=== PATIENT | male | born 1965 | race African-American/Black ===

== ENCOUNTER 2017-12-25 05:58 | Inpatient (IN) ==
[2017-12-25] MEDS ORDERED: Levofloxacin 500 MG/100 ML 500 MG/100 ML BAG IVPB ONE (06:17)
[2017-12-25] MEDS ORDERED: Albuterol 2.5 MG/3 ML NEBULIZER IH ONE (06:17)
[2017-12-25] MEDS ORDERED: Lidocaine -MPF 1% 2 ML VIAL ID ONE (06:17)
[2017-12-25] MEDS ORDERED: Ringers Solution, Lactated 1,000 ML IVC SCH (06:30)
--- NOTE | 2017-12-25 07:00 | Anesthesia Evaluation PreOp ---
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 Hand, Vocal cord sx, ing hernia, discectomy L4-5) Alcohol Use: none Drug use: none Medications and Allergies Methocarbamol [Robaxin] 750 mg PO Q4H 12/25/17 [History] 3 Allergy/AdvReac Type Severity Reaction Status Date / Time codeine Allergy Nausea Verified 12/25/17 06:24 Penicillins [PCN] Allergy See Verified 12/25/17 06:24 Comments pregabalin [From Lyrica] AdvReac See Verified 12/25/17 06:24 Comments - Meds/Allergy Pre-op Review Medications Reviewed: Yes Allergies Reviewed: Yes Beta Blockers on Current Med List: No Anesthesia Results - Labs Laboratory Tests 08/11/16 10/05/17 12/12/17 16:00 08:19 11:24 WBC 8.4 Hgb 14.8 Hct 43.8 Plt Count 232 INR 1.0 Sodium 140 Potassium 3.9 Chloride 107 Carbon Dioxide 27 BUN 8 Creatinine 12/12/17 11:24 WBC Hgb Hct Plt Count INR Sodium Potassium Chloride Carbon Dioxide BUN Creatinine 1.27 Stress Echo No Doppler Name: Husam Krishna Date of Study: 11/07/2017 Impressions: Negative stress ECG and echocardiogram for ischemia. Excellent exercise capacity without chest discomfort. Findings: Study Quality * Technically adequate exam. Rest Echocardiogram * LVEF 60%. * Normal left ventricular structure and function. Stress Echocardiogram * Normal sinus rhythm at rest. * No arrhythmias noted prior to exam beginning. * Stress ECG is negative for ischemia. * Rare PVCs noted during exercise. * The patient demonstrated a normal blood pressure response. * The exercise capacity was excellent. * No chest pain during stress procedure. * Appropriate increase EF with stress without segmental wall motion abnormalities. - Imaging EKG: report reviewed Anesthesia Exam O2 Sat Height 1.75 m Height 1.75 m Height 1.75 m Weight 93.44 kg Weight 93.44 kg Weight 93.44 kg O2 Sat by Pulse Oximetry 96 Vital Signs Temp Pulse Resp BP Pulse Ox 98.4 F 72 18 126/80 96 12/25/17 06:20 12/25/17 06:20 12/25/17 06:20 12/25/17 06:20 12/25/17 06:20 - HEENT Pupil (Motor): Pupils equal, EOMI Mallampati: II Teeth: Normal Oral Opening: Greater than 3 - [employer]ICK[employer] LOC: Oriented [employer] Motor: Normal RUE, Normal LUE, Normal RLE, Normal LLE, Normal Face [employer] Sensory: Normal: RUE, LUE, RLE, LLE, Face - Cardiac Rhythm: Regular Murmur: None JVD: No Carotid Bruit: No - Pulmonary Breath Sounds: bilateral Clear Respiratory Effort: Symmetrical Anesthesia Assess/Plan ASA Score: 2 Modified Reeds Scale for Level of Consciousness: Cooperative, oriented, and tranquil Anesthetic Plan: General Autologous Blood: Yes Monitoring Plan: Standard Monitors Recovery Plan: PACU
[2017-12-25] MEDS ORDERED: Bupivacaine-MPF 0.25% 10 ML VIAL ONE (07:13)
[2017-12-25] MEDS ORDERED: *HR* FentaNYL (PF) 100 MCG/2 ML VIAL ONE ×4 (07:14→10:32)
[2017-12-25] MEDS ORDERED: *HR* Propofol 200 MG/20 ML VIAL IVP ONE ×2 (07:14→09:58)
[2017-12-25] MEDS ORDERED: *HR* Midazolam HCl 2 MG/2 ML VIAL ONE (07:14)
[2017-12-25] MEDS ORDERED: Lidocaine -MPF 4% 5 ML AMPUL ONE (07:16)
--- NOTE | 2017-12-25 07:16 | History & Physical Report ---
Date of Encounter: 12/25/17 Time of Encounter: 07:16 24 Hour HP Update - Instructions Instructions: If the History and Physical is less than 30 days old and was completed prior to A.M. admission and or procedure and has NOT been updated on calendar day of procedure please complete this update prior to performing procedure. - Update Patient reports changes in Medical Condition: No Changes in examination, assessment, or condition: No Changes in Medication: No Preop tests/diagnostics Reviewed: Yes Surgery Remains Indicated: Yes Consent for Planned Operative Procedure(s) Verified: Yes - Pre-Operative Checklist Preoperative Checklist Indicated: Yes Prophylactic Antibiotic Ordered: Yes Home Medications Include Beta Joe: No Is VTE Prophylaxis Indicated?: Yes
[2017-12-25] MEDS ORDERED: Lacri-Lube 3.5 GM TUBE ONE (07:18)
[2017-12-25] MEDS ORDERED: Lidocaine -MPF 2% 2 ML VIAL ONE (07:30)
[2017-12-25] MEDS ORDERED: *HR* Succinylcholine 200 MG/10 ML VIAL IVP ONE (07:30)
[2017-12-25] MEDS ORDERED: *HR* Rocuronium Bromide 50 MG/5 ML VIAL ONE ×2 (07:30→10:15)
[2017-12-25] MEDS ORDERED: Heparin 1,000 UNITS/500 mL 500 ML ONE (07:35)
[2017-12-25] MEDS ORDERED: 0.9 % Sodium Chloride 1,000 ML IVC SCH (08:00)
[2017-12-25] MEDS ORDERED: Dexamethasone 4 MG/ML VIAL ONE (09:58)
[2017-12-25] MEDS ORDERED: Ondansetron 4 MG/2 ML VIAL ONE (09:58)
[2017-12-25] MEDS ORDERED: *HR* Metoprolol 5 MG/5 ML VIAL IVP ONE ×2 (10:22)
[2017-12-25] MEDS ORDERED: Neostigmine Methylsulfate 3 MG/3 ML SYRINGE ONE (11:38)
[2017-12-25] MEDS ORDERED: Acetaminophen IV 1,000 MG/100 ML INFUS..BTL IVPB ONE (11:42)
[2017-12-25] MEDS ORDERED: Ondansetron 4 MG/2 ML VIAL IVP ONE (11:42)
[2017-12-25] MEDS ORDERED: MORPHINE SUL Oral CONC 10 MG/0.5 ML ORAL.SYG SL PRN (11:42)
[2017-12-25] MEDS ORDERED: *HR* OxyCODONE Immed Rel 5 MG TABLET PO PRN (11:42)
[2017-12-25] MEDS ORDERED: *HR* HYDROmorphone 2 MG TABLET PO PRN (11:42)
--- NOTE | 2017-12-25 12:21 | Operative Note ---
Date of procedure: 12/25/17 Pre-op diagnosis: Prostate cancer Post-op diagnosis: other Procedure: Robotic-assisted radical prostatectomy Implants: 20-Rwandan Bernardo catheter. 19-Rwandan Nam drain Complications: none Anesthesia: GETA Surgeon: Trent Samuels Was there an education administrative assistant present: Yes Garage Worker: John Ritchie Estimated blood loss (cc): 300 Specimen: Left seminal vesicle and vas deferens. Prostate. Condition: stable Disposition: PACU Procedure in Detail: INDICATIONS FOR PROCEDURE: Mr. Krishna is a 52 year-old male with history of elevated PSA. He was found on prostate needle biopsy to have Maria C 3+3 prostate cancer along the right side. He is now presenting for robotic assisted prostatectomy. He was informed of the risks of the procedure including but not limited to bleeding, infection, injury to other structures, need for further procedures, lymphocele, urinary incontinence, urine leak, erectile dysfunction, bladder neck contracture, rectal injury, and the risk of anesthesia. He is willing to proceed. PROCEDURE: After informed consent was obtained, the patient was taken to the operating room, placed supine on the table. He was given IV antibiotics for antibiotic coverage. He had BAIRON's and SCD's placed on the lower extremities for DVT prophylaxis. Induction of general anesthesia was performed. The arms were tucked and he was placed in lithotomy position. He was secured to the OR table with padding. An 18 [place]an Bernardo catheter was placed. A 5 mm incision was made in the left upper quadrant which would be utilized for our education administrative assistant port. He previously had laparoscopic hernia repairs and I wanted to avoid those areas initially. The Veress needle was introduced. The water drop test passed. Pneumoperitoneum was initiated with low pressures initially. The abomen was insufflated. I then placed a 5mm camera port through this incision using the visual obturator. Once the trocar was in place, I assessed the abdomen. There were some adhesions in the left lower pelvis, but there is no other adhesions noted towards the umbilical region. An incision was made infraumbilically. A robotic port was then placed there. The remaining trocars were placed. Robotic ports were placed x 2 on the right side. We placed another robotic port to the left of the umbilicus. We also placed a 12mm port in the left lower quadrant. Once all trocars were in place, the robot was docked to the patient and the monopolar scissors were placed on the right robotic arm. The bipolar [place] was in the left robotic arm and the Prograsp in the 4th arm. The robotic camera was inserted. There was a fair amount of adhesions to the sigmoid colon along the left pelvic sidewall. These were sharply dissected away in order to free up the pelvis. Mesh was seen in the left inguinal region and this made it difficult to free up the entire pelvic sidewall. Once the bowel was mobilized and I then proceeded to take down the umbilical ligaments. We initially retracted the bowel with the 4th arm. The medial umbilical ligaments were cauterized and the bladder was taken down off the anterior abdominal wall using electrocautery. The bladder was then grasped with a 4th arm and retracted cephalad. He did have a previous open right inguinal hernia which did lead to some adhesions along the right pelvic sidewall. The operative field was tight given the previous hernia repairs. However, I was able to adequately access the prostate. We then swept the periprostatic fat off the prostate as well as the pelvic sidewall. We then incised the endopelvic fascia on both sides and carried the incision up to the prostatic apex, sweeping the levator fibers off of the prostate. The levator fibers were quite adherent to the prostate. It did take some more careful dissection to release them off the lateral aspects of the prostate. The puboprostatic ligaments were carefully incised. We then placed an 0 Vicryl suture through the dorsal venous complex and tied it down with a surgeon's knot. Once the dorsal venous complex was ligated, we then turned our attention to the bladder neck which was incised with the monopolar cautery until the catheter was visualized at the bladder neck. The balloon of the catheter was deflated. It was brought out of the bladder and retracted anteriorly using the fourth arm. The posterior bladder neck was then opened using the cautery until the space between the prostate and the bladder neck was visualized. The posterior aspect of the prostate was dissected down carefully using electrocautery. The vas deferens and seminal vesicals were encountered. The vas deferens were cauterize and divided. We pulled the seminal vesicles up into the field to help retract the prostate in cephalad direction. Denonvillier's fascia was dissected off the prostate posteriorly. We then began releasing the lateral prostatic fascia, first on the left side. The neurovascular bundles were dissected off the prostate with minimal use of cautery to do a good nerve sparing approach. After the left neurovascular bundle was released, I carefully divided the pedicles using multiple Hem-o-casie clips to clip the larger prostatic pedicle. It was difficult to get anterior retraction on the prostate and there was a fair amount of bleeding from the pedicles during this dissection. Once all the pedicles were released the neurovascular bundle was freed adequately. An identical procedure was performed on the right side to release the neurovascular bundles. The right side was similar to the left. There was some difficulty with the anterior retraction given the narrow pelvis and difficult room to adequately move the robotic arms. Once both neurovascular bundles were released, the posterior attachments were released sharply between the prostate and the rectum. We then used the 4th arm to place the prostate on stretch in cephalad direction. We then transected the dorsal venous complex and then with cold scissors cut across the urethra until the catheter was visualized. The stitch from the dorsal venous complex did open up at this point. I was able to get through the urethra. The catheter was removed and the posterior urethra was transected. The prostate was then placed in an Endo Catch bag. The pedicles were identified and cautery was utilized to minimize any bleeding and control it. A 0 Vicryl suture was then placed along the dorsal venous complex in a [id number] fashion which secured the bleeding there. The urethral vesicle anastomosis was then performed with a 3-0 V-Casie suture in running fashion starting at 6 o'clock position. With two sutures tied together we then ran the right side up about retirement. The left side was then run around until the bladder was reanastamosed to the urethra. The final 20 Rwandan catheter was placed into the bladder and balloon filled with 15 mL of sterile water. The bladder was irrigated. No leak was identified. A 19 Rw[place]an Nam drain was placed through the trocar down into the pelvis. The trocar was removed and drain sewn in place with a suture. The robot was then undocked from the patient. The suture from the entrapment bag was removed laparoscopically to the umbilical port site and brought out of the wound. After extending the incision slightly with the electrocautery the EndoCatch bag was then removed from the camera port. The abdominal fascia was then closed in running fashion with 0 Vicryl suture. All incisions were instilled with 0.25% Marcaine. The remaining trocars were removed under direct vision and all incisions were then closed with 4-0 Monocryl in subcuticular fashion. The patient was then awakened from general anesthesia and brought to the recovery room in good condition. All sponge, needle, and instrument counts were correct.
--- NOTE | 2017-12-25 12:57 | Anesthesia Evaluation Post Op ---
Date of Encounter: 12/25/17 Time of Encounter: 12:57 - Vital Signs Vital Signs: Vital Signs/O2 Sat/Glucose, Most Recent Temp Pulse Resp BP Pulse Ox 98.2 F 93 16 135/79 98 12/25/17 12:17 12/25/17 12:37 12/25/17 12:37 12/25/17 12:37 12/25/17 12:37 - Lungs Lungs: Clear Ascult./Percussion - Airway Airway: Non-obstructed - Cardiovascular Regular Rate - Mental Status Mental Status: Alert & Oriented, Answers Appropriately - Pain Pain Scale: 0 Pain Scale used: Numeric (1 - 10) - Nausea Vomiting Nausea Vomiting: Not Present - Hydration Hydration: Tolerates oral liquids - Discharge PostOp Status: Transfer Patient to floor
[2017-12-25] MEDS ORDERED: OXYCODONE Oral CONC 10 MG/0.5 ML ORAL.SYG SL PRN (13:28)
[2017-12-25] MEDS ORDERED: Naloxone 0.4 MG/ML INJ IVP PRN (13:28)
[2017-12-25] MEDS ORDERED: Ondansetron 4 MG/2 ML VIAL IVP PRN (13:28)
[2017-12-25] MEDS ORDERED: Acetaminophen 325 MG TABLET PO PRN (13:28)
[2017-12-25] MEDS: Methocarbamol 750 MG TABLET PO SCH ×3 (14:26→21:04)
[2017-12-25] MEDS: 0.9 % Sodium Chloride 1,000 ML IVC SCH ×2 (14:26→22:22)
[2017-12-25] MEDS: *HR* Heparin 5,000 UNIT/ML VIAL SQ SCH (17:50)
[2017-12-26] MEDS: Methocarbamol 750 MG TABLET PO SCH ×6 (00:43→20:56)
[2017-12-26 04:12] LABS: Hematocrit 37.5 % (37.5-50.1); Hemoglobin 12.9 g/dL (12.9-16.9); Mean Corpuscular HGB Conc 34.4 g/dL (31.6-35.5); Mean Corpuscular Hemoglobin 34.9 pg (28.0-33.3); Mean Corpuscular Volume 101.4 fL (83.0-100.0); Mean Platelet Volume 9.9 fL (9.4-12.4); Platelet Count 226 K/mcL (140-400); Red Cell Distribution Width 11.9 % (11.5-14.5)
[2017-12-26 04:31] LABS: BUN/Creatinine Ratio 12 (6-26); Blood Urea Nitrogen 11 mg/dL (6-20); Calcium 8.6 mg/dL (8.6-10.3); Carbon Dioxide 22 mEq/L (23-29); Chloride 109 mEq/L (98-107); Glucose 114 mg/dL (70-105); Osmolality,Calculated 286 (280-300); Potassium 4.2 mEq/L (3.5-5.1); Sodium 138 mEq/L (136-145); eGFR For African Americans > 60 (> 60); eGFR For Non-African Americans > 60 (> 60)
[2017-12-26] MEDS: *HR* Heparin 5,000 UNIT/ML VIAL SQ SCH ×2 (05:01→18:05)
[2017-12-26] MEDS: 0.9 % Sodium Chloride 1,000 ML IVC SCH (05:05)
--- NOTE | 2017-12-26 07:25 | Discharge Summary ---
Orders not resulted at time of discharge: Pending orders 12/25/17 09:59 Surgical Pathology [PTH] Routine 12/25/17 11:43 Surgical Pathology [PTH] Routine Date of Encounter: 12/28/17 Time of Encounter: 08:06 - Discharge Diagnosis (1) Prostate cancer Priority: Primary Status: Acute - Hospital Course Hospital course: Mr. Krishna is a 52 year old male with a history of prostate cancer. On 2017 he underwent a robotic-assisted radical prostatectomy. He did well after surgery. On postoperative day #1 his diet was slowly advanced. He had early satiety and stayed into POD #2. Once he tolerated regular diet and his pain was well-controlled, he was discharged home. He had minimal output from his drain and this was removed prior to discharge. He was given Bernardo catheter instructions as well. - Time Spent with Patient Total time spent providing and/or coordinating discharge services: Less than 30 minutes Labs on day of discharge: Labs from last 24 hours 12/26/17 12/26/17 03:33 03:33 WBC 13.5 H RBC 3.70 L Hgb 12.9 Hct 37.5 MCV 101.4 H MCH 34.9 H MCHC 34.4 RDW 11.9 Plt Count 226 MPV 9.9 Sodium 138 Potassium 4.2 Chloride 109 H Carbon Dioxide 22 L BUN 11 Creatinine 0.92 Est GFR ( Amer) > 60 Est GFR (Non-Af Amer) > 60 BUN/Creatinine Ratio 12 Glucose 114 H Calculated Osmolality 286 Calcium 8.6 - Discharge Medications Prescriptions: Docusate [Colace] 100 mg PO BID #60 capsule Oxycodone HCl/Acetaminophen [Percocet 5-325 mg Tablet] 1 each PO Q4H PRN 5 Days #20 tablet PRN Reason: Pain Home Medications: Methocarbamol [Robaxin] 750 mg PO Q4H 12/25/17 [History] Docusate [Colace] 100 mg PO BID #60 capsule 12/26/17 [Rx] Oxycodone HCl/Acetaminophen [Percocet 5-325 mg Tablet] 1 each PO Q4H PRN 5 Days #20 tablet 12/26/17 [Rx] Allergies/Adverse Reactions: 3 Allergy/AdvReac Type Severity Reaction Status Date / Time codeine Allergy Nausea Verified 12/25/17 06:24 Penicillins [PCN] Allergy See Verified 12/25/17 06:24 Comments pregabalin [From Lyrica] AdvReac See Verified 12/25/17 06:24 Comments Date of admission: 12/25/17 13:17 Primary care physician: Milka Curtis Consults: 12/26/17 07:22 Consult to Physical Therapy [CONS] Routine Comment: Evaluate, develop and implement POC Reason for Consult: Assist with ambulation and recommendations for chronic lower back pain Does patient have active BEDREST order?: No Is patient medically & hemodynamically stable?: Yes Patient assessed for mobility or mobilized this visit?: No Anticipated date of discharge: 12/27/17 Exam Initial Vital Signs Temp Pulse Resp BP Pulse Ox 98.4 F 72 18 126/80 96 12/25/17 06:20 12/25/17 06:20 12/25/17 06:20 12/25/17 06:20 12/25/17 06:20 - General physical appearance Present: well developed, well nourished, no distress - Eyes Absent: icteric - ENT Present: normal nares - Neck Present: trachea midline - Respiratory Present: normal respiratory effort - Cardiovascular Cardiovascular exam IM: RRR - Abdomen Abdomen: Present: soft (appropriately tender, incisions are c,d,i.) - Genitourinary normal penis with no external lesions (catheter in place with clear urine) - Neurologic Present: normal coordination - Patient Status Disposition: Home, Self-Care Condition: Good Functional capacity at discharge: independent ambulation Overall status at discharge: patient is progressing back to baseline - Discharge Instructions Instructions: Robot Assisted Laparoscopic Prostatectomy (DC) Follow Up With: Milka Curtis [Primary Care Provider] - 01/09/18 2:30 pm Trent Samuels MD [Partnered Physician] - 01/01/18 7:45 am (1 week for a voiding trial. [facility] is okay.) Additional Instructions: 1. No heavy lifting greater than 20 pounds x2-4 weeks. 2. No tub baths x2 weeks. 3. May shower. 4. He should follow up in 1 week for a voiding trial. 5. He should return for any fevers, chills, nausea, vomiting, worsening hematuria, or significant swelling/ecchymosis. Please provide catheter care instructions - leg bag, night bag, leg strap and how to change the bags appropriately. Patient should bring incontinence pads or depends to the voiding trial visit in one week. - Diet and Activity Activity: increase activity as tolerated Diet: advance to your usual diet - VTE Documentation of Mechanical Device: Intermittent pneumatic compression device
[2017-12-26] MEDS ORDERED: 0.9 % Sodium Chloride 1,000 ML IVC SCH (07:30)
[2017-12-26] MEDS: *HR* OxyCODONE Immed Rel 5 MG TABLET PO PRN (14:14)
--- NOTE | 2017-12-26 16:11 | Urology Progress Note ---
Date of Encounter: 12/26/17 Time of Encounter: 16:09 - Assessment and Plan (1) Prostate cancer Current Visit: Yes Status: Acute Assessment and plan: POD #1 s/p RARP. 1. Continue general diet. 2. Anticipate d/c home tomorrow. Progress Note Narrative: POD #1 s/p RARP. He hasn't tolerated general diet well today. He wishes to spend another night. RONY output was minimal and it was removed. Objective Initial Vital Signs Temp Pulse Resp BP Pulse Ox 98.4 F 72 18 126/80 96 18 06:20 12/25/17 06:20 12/25/17 06:20 12/25/17 06:20 12/25/17 06:20 - General physical appearance Present: well developed, well nourished, no distress - Respiratory Present: normal respiratory effort - Abdomen Present: soft (c,d,i. Appropriately tender. ND.) - Labs 12/26/17 03:33 12/26/17 03:33 Diabetes panel 12/26/17 Range/Units 03:33 Sodium 138 (136-145) mEq/L Potassium 4.2 (3.5-5.1) mEq/L Chloride 109 H (98-107) mEq/L Carbon Dioxide 22 L (23-29) mEq/L BUN 11 (6-20) mg/dL Creatinine 0.92 (0.70-1.30) mg/dL Glucose 114 H (70-105) mg/dL Calcium 8.6 (8.6-10.3) mg/dL Calcium panel 12/26/17 Range/Units 03:33 Calcium 8.6 (8.6-10.3) mg/dL Pituitary panel 12/26/17 Range/Units 03:33 Sodium 138 (136-145) mEq/L Potassium 4.2 (3.5-5.1) mEq/L Chloride 109 H (98-107) mEq/L Carbon Dioxide 22 L (23-29) mEq/L BUN 11 (6-20) mg/dL Creatinine 0.92 (0.70-1.30) mg/dL Glucose 114 H (70-105) mg/dL Calcium 8.6 (8.6-10.3) mg/dL Adrenal panel 12/26/17 Range/Units 03:33 Sodium 138 (136-145) mEq/L Potassium 4.2 (3.5-5.1) mEq/L Chloride 109 H (98-107) mEq/L Carbon Dioxide 22 L (23-29) mEq/L BUN 11 (6-20) mg/dL Creatinine 0.92 (0.70-1.30) mg/dL Glucose 114 H (70-105) mg/dL Calcium 8.6 (8.6-10.3) mg/dL - VTE Documentation of Mechanical Device: Intermittent pneumatic compression device Consult Discharge Plan - Plan Additional Instructions: 1. No heavy lifting greater than 20 pounds x2-4 weeks. 2. No tub baths x2 weeks. 3. May shower. 4. He should follow up in 1 week for a voiding trial. 5. He should return for any fevers, chills, nausea, vomiting, worsening hematuria, or significant swelling/ecchymosis. Please provide catheter care instructions - leg bag, night bag, leg strap and how to change the bags appropriately. Patient should bring incontinence pads or depends to the voiding trial visit in one week. Referrals: Milka Curtis [Primary Care Provider] - 01/09/18 2:30 pm Trent Samuels MD [Partnered Physician] - 01/01/18 7:45 am (1 week for a voiding trial.) Prescriptions: Docusate [Colace] 100 mg PO BID #60 capsule Oxycodone HCl/Acetaminophen [Percocet 5-325 mg Tablet] 1 each PO Q4H PRN 5 Days #20 tablet PRN Reason: Pain
[2017-12-27] MEDS: Methocarbamol 750 MG TABLET PO SCH ×4 (03:30→13:15)
[2017-12-27] MEDS: *HR* Heparin 5,000 UNIT/ML VIAL SQ SCH (05:46)
[2017-12-27 11:23] VITALS: BP 138/87
[2017-12-27] MEDS: *HR* OxyCODONE Immed Rel 5 MG TABLET PO PRN (16:42)
== END 2017-12-27 16:55 | disposition home or self-care (01) | DRG 484 ==
LOC: SAMDAY 05:58 → 3ANU 13:17
PROVIDERS: ADMIT Urology; ATTEND Urology